=== PATIENT | male | born 1950 | race Caucasian/White ===

== ENCOUNTER 2017-08-31 14:47 | Inpatient (IN) | payer MEDICARE ==
--- OUTSIDE RECORDS SUMMARY | 2017-08-31 15:29 | XMS REPORT ---
:1950 External Reference #:[id number] Author Organization [facility] Address [address] [address] Phone [phone] Care Team Providers Name Role Phone Facundo Deleon MD Care Team Information Performance Tester Unavailable Federica Velasco MD Primary Care Physician Unavailable Payers Type Date Identification Numbers Payment Provider Subscriber Health Maintenance Policy Number: Medicare Blue Ppo Giselle Bass [facility] (O) [id number] PayID: [id number] [address] [address] [place] [address] Medigap Part B Expires: 03/01/2017 Policy Number: [id number] Medicare Giselle Bass PayID: [id number] [address] [place] [address] Medigap Part B Effective: 03/08/2013 Policy Number: BS Facets Giselle Bass [id number] Expires: 03/07/2017 PayID: [id number] [address] [address] [place] [address] Medigap Part B Effective: 07/06/2009 Policy Number: BS Facets Giselle Bass [id number] Expires: 03/07/2013 PayID: [id number] [address] [address] [place] [address] Workers Compensation Effective: Policy Number: [employer] Giselle Bass 06/21/2014 [id number] Onset: 06/21/2014 PayID: [id number] [address] [place] [address] Problems Date Description Provider Status Onset: 11/25/2012 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 Onset: 11/30/2012 Tricuspid valve disorder, Odell Avery Active non-rheumatic M.DAris Onset: 01/05/2013 Osteomyelitis Elijah Grace M.D. Active Onset: 01/05/2013 Pure hypercholesterolemia Elijah Grace M.D. Active Onset: 03/20/2013 Shoulder joint pain Karthik Rivera M.D. Active Family History Date Family Member(s) Problem(s) Comments General Heart Disease : (age 60 Years) Father due to [place] Mother due to CHF () First Daughter Alive And Well Social History Type Date Description Comments Occupation [employer] Use Denies alcohol use Smoking Patient has never smoked Recreational Drug Use Denies Drug Use Daily Caffeine Consumes on average 2 cups of regular coffee per day Exercise Type/Frequency Walks 2 times a week 2-3 miles General Hx Text Lives with significant other. Works in construction. Allergies, Adverse Reactions, Alerts Date Description Reaction Status Severity Comments 10/06/2006 NKDA active Medications Medication Date Status Form Strength Qnty SIG Indications Ordering Provider Metoprolol 12/22/ Active Tablets ER 25mg 90tabs 1 by I34.0 Chelsea Succinate ER 2016 24HR mouth Kathleen, every day M.DAris Paroxetine HCL 11/27/ Active Tablets 20mg 1 by [email or web address] kevyn Stallworth MD every day Alprazolam 07/08/ Active Tablets 0.25mg 6tabs 1 tablet F41.9 Elijah Almanza by kevyn Grace, up to M.DAris twice a day as needed for anxiety attacks Aleve / Active Capsules 220mg 1 by Unknown 0000 mouth twice a day as needed Diazepam / Active Tablets 5mg 1/2 to 1 Unknown 0000 tablet orally twice a day prn anxiety Vitamin B12 / Active Tablets ER 1000mcg 1 by Krista, mouth MD Federica every day Juan Jose Aspirin Ec / Active Tablets DR 81mg 1 tablet Adrienne, Low Dose 0000 po daily MD Facundo Vitamin D3 / Active Capsules 2000Unit 1 by Velasco, mouth MD Federica every day Hydrocodone-Acet 01/24/ Hx Tablets 5-325mg take 1-2 jordan Deleon 2017 - tablet po Facundo, 06/28/ every 4 MD 2018 hours prn for pain Hydrocodone-Acet 06/25/ Hx Tablets 5-325mg 20tabs 1-2 by 724.2 Elijah ortega 2015 - mouth Lesly, 09/03/ every 6 M.D. 2015 hours as needed pain. No Active 02/06/ Hx Unknown Medications 2012 - 2012 Augmentin 02/06/ Hx Tablets 500-125mg 28tabs 1 po bid 730.28 Severino 2012 - D. 06/25/ Kelsey 2014 M.DAris Augmentin 01/30/ Hx Tablets 500-125mg 28tabs 1 po bid Severino 2012 - DAris 02/06/ Kelsey 2012 M.DAris Zosyn 12/20/ Hx Solution 4-0.5GM/10 QS 4.5GM IV Severino 2012 - 0ML q8hrs D. 01/05/ Kelsey 2012 M.DAris No Active 11/25/ Hx Unknown Medications 2012 - 2012 Lisinopril 02/16/ Hx Tablets 5mg 90tabs one po qd Qutaybpb 2007 - S. 11/25/ Bennie 2012 Vimal Invanz / Hx Solution 1gm 14unit q24hrs Unknown 0000 - Rec s for 14 02/06/ 2012 Heparin Lock / Hx Solution 1Unit/ML Unknown Flush - 2012 Prednisone 00/ Hx Tablets 20mg 2 by Unknown 0000 - mouth 07/24/ every day 2014 Ibuprofen / Hx Tablets 200mg as needed Unknown 0000 - 2016 Ergocalciferol / Hx 50,000 Unknown 0000 - units 02/04/ orally 2016 once a week Warfarin Sodium 00/ Hx Tablets 2mg Take 1 Unknown 0000 - /2 06/27/ tablet po 2017 fri, and 1 tablet mon,, wed,th, sat,sun PM ( last Inr 03/12/[address] Federica Velasco) (stop 04/21/17 Probiotic 0000/ Hx 1 tablet Unknown 0000 - po 07/07/ daily(las 2017 t taking before 03/01/17) Vital Signs Date Vital Result Comment 08/10/2017 Height 71.25 inches 5'11.25" Weight 173.00 lb Heart Rate 84 /min BP Systolic 133 mmHg Lue home BP cuff BP Diastolic 93 mmHg Lue home BP cuff BP Systolic Sitting 130 mmHg Lue reg cuff BP Diastolic Sitting 94 mmHg Lue reg cuff BP Systolic Standing 110 mmHg Lue BP Diastolic Standing 82 mmHg Lue Respiratory Rate 16 /min BMI (Body Mass Index) 24.0 kg/m2 Ejection Fraction 50-55% 03/16/17 07/08/2017 Height 71.25 inches 5'11.25" Weight 175.00 lb no shoes Heart Rate 98 /min BP Systolic Sitting 116 mmHg Lue reg cuff BP Diastolic Sitting 74 mmHg Lue reg cuff BP Systolic Standing 96 mmHg Lue reg cuff BP Diastolic Standing 68 mmHg Lue reg cuff Respiratory Rate 16 /min BMI (Body Mass Index) 24.2 kg/m2 06/28/2017 Height 71.25 inches 5'11.25" Weight 179.00 lb without sh Heart Rate 76 /min BP Systolic Sitting 134 mmHg Rue reg cuff BP Diastolic Sitting 80 mmHg Rue reg cuff BP Systolic Standing 122 mmHg Rue reg cuff BP Diastolic Standing 90 mmHg Rue reg cuff Respiratory Rate 16 /min BMI (Body Mass Index) 24.8 kg/m2 03/22/2017 Height 71.25 inches 5'11.25" Weight 173.00 lb No shoes Heart Rate 72 /min BP Systolic Sitting 142 mmHg Rue reg cuff BP Diastolic Sitting 88 mmHg Rue reg cuff BP Systolic Standing 146 mmHg Rue reg cuff BP Diastolic Standing 90 mmHg Rue reg cuff Respiratory Rate 16 /min BMI (Body Mass Index) 24.0 kg/m2 Ejection Fraction 50-55% 03/16/2017-echo 02/05/2017 Height 71.25 inches 5'11.25" Weight 162.00 lb without shoes Heart Rate 72 /min BP Systolic Sitting 138 mmHg Lue reg cuff BP Diastolic Sitting 86 mmHg Lue reg cuff BP Systolic Standing 132 mmHg Lue BP Diastolic Standing 88 mmHg Lue Respiratory Rate 16 /min BMI (Body Mass Index) 22.4 kg/m2 Ejection Fraction 60-65% 09/30/16 01/05/2017 Height 71.25 inches 5'11.25" Weight 168.00 lb with shoes Heart Rate 68 /min BP Systolic Sitting 140 mmHg Lue reg cuff BP Diastolic Sitting 74 mmHg Lue reg cuff BP Systolic Standing 142 mmHg Lue reg cuff BP Diastolic Standing 78 mmHg Lue reg cuff Respiratory Rate 16 /min BMI (Body Mass Index) 23.3 kg/m2 12/22/2016 Height 71.25 inches 5'11.25" Weight 161.00 lb no shoes Heart Rate 74 /min BP Systolic 144 mmHg Rue reg cuff BP Diastolic 84 mmHg Rue reg cuff BP Systolic Sitting 140 mmHg Lue reg cuff BP Diastolic Sitting 80 mmHg Lue reg cuff BP Systolic Standing 136 mmHg Lue reg cuff BP Diastolic Standing 82 mmHg Lue reg cuff Respiratory Rate 16 /min BMI (Body Mass Index) 22.3 kg/m2 Ejection Fraction 60-65% 10/01/2016-echo 07/08/2016 Weight 156.00 lb Heart Rate 88 /min BP Systolic Sitting 154 mmHg BP Diastolic Sitting 86 mmHg Respiratory Rate 15 /min Body Temperature 98.0 F O2 % BldC Oximetry 98 % 06/30/2016 Height 72 inches 6'0" Weight 163.00 lb Heart Rate 80 /min BP Systolic 160 mmHg BP Diastolic 80 mmHg Body Temperature 97.7 F O2 % BldC Oximetry 98 % BMI (Body Mass Index) 22.1 kg/m2 04/08/2016 Height 72 inches 6'0" Weight 160.00 lb Heart Rate 76 /min BP Systolic Recheck 130 mmHg BP Diastolic Recheck 84 mmHg Respiratory Rate 16 /min Body Temperature 97.9 F BMI (Body Mass Index) 21.7 kg/m2 02/25/2015 Weight 166.00 lb Heart Rate 90 /min BP Systolic Sitting 172 mmHg BP Diastolic Sitting 88 mmHg Body Temperature 96.6 F 09/04/2014 Height 71.5 inches 5'11.50" Weight 155.00 lb Heart Rate 68 /min BP Systolic Sitting 138 mmHg BP Diastolic Sitting 78 mmHg Respiratory Rate 16 /min BMI (Body Mass Index) 21.3 kg/m2 07/24/2014 Height 71.5 inches 5'11.50" Weight 149.00 lb Heart Rate 84 /min BP Systolic Sitting 138 mmHg BP Diastolic Sitting 82 mmHg O2 % BldC Oximetry 97 % BMI (Body Mass Index) 20.5 kg/m2 06/29/2014 Height 71.5 inches 5'11.50" Weight 162.00 lb Heart Rate 84 /min BP Systolic Sitting 142 mmHg BP Diastolic Sitting 80 mmHg O2 % BldC Oximetry 98 % BMI (Body Mass Index) 22.3 kg/m2 06/25/2014 Height 71.5 inches 5'11.50" Weight 165.50 lb Heart Rate 90 /min BP Systolic Sitting 178 mmHg BP Diastolic Sitting 76 mmHg Pain Level 7 O2 % BldC Oximetry 98 % BMI (Body Mass Index) 22.8 kg/m2 02/06/2013 Weight 163.00 lb Heart Rate 80 /min BP Systolic Sitting 115 mmHg BP Diastolic Sitting 68 mmHg Body Temperature 97.0 F 01/16/2013 Height 71.5 inches 5'11.50" Weight 150.00 lb Heart Rate 76 /min BP Systolic 126 mmHg BP Diastolic 70 mmHg Body Temperature 97.5 F BMI (Body Mass Index) 20.6 kg/m2 01/05/2013 Height 71.5 inches 5'11.50" Weight 157.00 lb Heart Rate 78 /min BP Systolic Sitting 136 mmHg BP Diastolic Sitting 80 mmHg BMI (Body Mass Index) 21.6 kg/m2 12/19/2012 Height 72 inches 6'0" Weight 144.00 lb Heart Rate 68 /min BP Systolic 114 mmHg BP Diastolic 70 mmHg Body Temperature 95.4 F BMI (Body Mass Index) 19.5 kg/m2 12/09/2012 Height 72 inches 6'0" Weight 142.00 lb Heart Rate 72 /min BP Systolic 118 mmHg BP Diastolic 62 mmHg Body Temperature 96.7 F BMI (Body Mass Index) 19.3 kg/m2 11/30/2012 Height 72 inches 6'0" Weight 146.00 lb Heart Rate 120 /min BP Systolic Sitting 88 mmHg BP Diastolic Sitting 66 mmHg BP Systolic Standing 90 mmHg BP Diastolic Standing 70 mmHg BP Systolic Lying Down 112 mmHg BP Diastolic Lying Down 60 mmHg Respiratory Rate 16 /min BMI (Body Mass Index) 19.8 kg/m2 11/25/2012 Height 72 inches 6'0" Weight 145.00 lb Heart Rate 80 /min BP Systolic 120 mmHg BP Diastolic 64 mmHg Body Temperature 96.7 F BMI (Body Mass Index) 19.7 kg/m2 05/18/2007 Height 73 inches 6'1" Weight 174.00 lb Heart Rate 72 /min BP Systolic Sitting 110 mmHg L BP Diastolic Sitting 70 mmHg L BMI (Body Mass Index) 23.0 kg/m2 02/16/2007 Height 73 inches 6'1" Weight 171.00 lb Heart Rate 64 /min BP Systolic Sitting 134 mmHg L BP Diastolic Sitting 70 mmHg L BMI (Body Mass Index) 22.6 kg/m2 10/06/2006 Height 73 inches 6'1" Weight 165.00 lb Heart Rate 65 /min BP Systolic Sitting 110 mmHg L BP Diastolic Sitting 62 mmHg L BMI (Body Mass Index) 21.8 kg/m2 Results Test Date Test Result H/L Range Note CBC Auto Diff 12/30/2016 White Blood Count 7.9 10^3/uL 3.5-10.8 Red Blood Count 4.98 10^6/uL 4.0-5.4 Hemoglobin 14.1 g/dL 14.0-18.0 Hematocrit 42 % 42-52 Mean Corpuscular Volume 84 fL 80-94 Mean Corpuscular Hemoglobin 28 pg 27-31 Mean Corpuscular HGB Conc 34 g/dL 31-36 Red Cell Distribution Width 14 % 10.5-15 Platelet Count 241 10^3/uL 150-450 Mean Platelet Volume 9 um3 7.4-10.4 Abs Neutrophils 4.5 10^3/uL 1.5-7.7 Abs Lymphocytes 2.4 10^3/uL 1.0-4.8 Abs Monocytes 0.5 10^3/uL 0-0.8 Abs Eosinophils 0.4 10^3/uL 0-0.6 Abs Basophils 0.1 10^3/uL 0-0.2 Abs Nucleated RBC 0.01 10^3/uL Granulocyte % 56.4 % 38-83 Lymphocyte % 30.6 % 25-47 Monocyte % 6.8 % 1-9 Eosinophil % 5.5 % 0-6 Basophil % 0.7 % 0-2 Nucleated Red Blood Cells % 0.1 Inr/Protime 12/30/2016 Inr 0.93 0.89-1.11 Comp Metabolic Panel 12/30/2016 Sodium 138 mmol/L 133-145 Potassium 4.0 mmol/L 3.5-5.0 Chloride 104 mmol/L 101-111 Co2 Carbon Dioxide 30 mmol/L 22-32 Anion Gap 4 mmol/L 2-11 Glucose 83 mg/dL 70-100 Blood Urea Nitrogen 21 mg/dL 6-24 Creatinine 0.96 mg/dL 0.67-1.17 BUN/Creatinine Ratio 21.9 High 8-20 Calcium 9.5 mg/dL 8.6-10.3 Total Protein 7.3 g/dL 6.4-8.9 Albumin 4.4 g/dL 3.2-5.2 Globulin 2.9 g/dL 2-4 Albumin/Globulin Ratio 1.5 1-3 Total Bilirubin 0.80 mg/dL 0.2-1.0 Alkaline Phosphatase 52 U/L 34-104 Alt 24 U/L 7-52 Ast 23 U/L 13-39 Egfr Non- 78.6 >60 Egfr 101.1 >60 1 Laboratory test finding 09/04/2014 Vitamin B12 230 pg/mL 180-914 2 CBC Auto Diff 07/23/2014 White Blood Count 6.8 10^3/uL 4.8-10.8 Red Blood Count 5.05 10^6/uL 4.0-5.4 Hemoglobin 13.8 g/dL Low 14.0-18.0 Hematocrit 43 % 42-52 Mean Corpuscular Volume 84 fL 80-94 Mean Corpuscular Hemoglobin 27 pg 27-31 Mean Corpuscular HGB Conc 32 g/dL 31-36 Red Cell Distribution Width 14 % 10.5-15 Platelet Count 234 10^3/uL 150-450 Mean Platelet Volume 9 um3 7.4-10.4 Abs Neutrophils 3.3 10^3/uL 1.5-7.7 Abs Lymphocytes 2.5 10^3/uL 1.0-4.8 Abs Monocytes 0.6 10^3/uL 0-0.8 Abs Eosinophils 0.3 10^3/uL 0-0.6 Abs Basophils 0 10^3/uL 0-0.2 Abs Nucleated RBC 0.01 10^3/uL Granulocyte % 48.8 % 38-83 Lymphocyte % 37.5 % 25-47 Monocyte % 8.6 % 1-9 Eosinophil % 4.4 % 0-6 Basophil % 0.7 % 0-2 Nucleated Red Blood Cells % 0.1 Laboratory test finding 07/23/2014 Lactic Acid 0.6 mmol/L 0.5-2.2 Comp Metabolic Panel 07/23/2014 Sodium 137 mmol/L 133-145 Potassium 3.7 mmol/L 3.5-5.0 Chloride 104 mmol/L 101-111 Co2 Carbon Dioxide 27 mmol/L 22-32 Anion Gap 6 mmol/L 2-11 Glucose 92 mg/dL 70-100 Blood Urea Nitrogen 18 mg/dL 6-24 Creatinine 0.87 mg/dL 0.67-1.17 BUN/Creatinine Ratio 20.7 High 8-20 Calcium 9.2 mg/dL 8.6-10.3 Total Protein 6.8 g/dL 6.4-8.9 Albumin 4.2 g/dL 3.2-5.2 Globulin 2.6 g/dL 2-4 Albumin/Globulin Ratio 1.6 1-3 Total Bilirubin 1.10 mg/dL High 0.2-1.0 Alkaline Phosphatase 50 U/L 34-104 Alt 19 U/L 7-52 Ast 23 U/L 13-39 Egfr Non- 88.9 >60 Egfr 114.4 >60 3 Laboratory test finding 07/23/2014 Acetaminophen < 15 g/mL 4 Alcohol < 10 mg/dL <10 Salicylate < 2.50 mg/dL <30 TSH (Thyroid Stimulating Horm) 1.87 ?IU/mL 0.34-5.60 Urinalysis Profile 07/23/2014 Urine Color Yellow Urine Appearance Clear Urine Specific [place] 1.024 1.010-1.030 Urine pH 6.0 5-9 Urine Urobilinogen Positive Negative Urine Ketones Negative Negative Urine Protein Negative Negative Urine Leukocytes Negative Negative Urine Blood Negative Negative Urine Nitrite Negative Negative Urine Bilirubin Negative Negative Urine Glucose Negative Negative Urine Drug SCR ED & 07/23/2014 Amphetamine Ur Screen None Detected None Detect Pain Clinic Barbiturates Urine Screen None Detected None Detect Benzodiazepine Urine Screen None Detected None Detect Urine Cannabinoids Screen None Detected None Detect Urine Cocaine Screen None Detected None Detect Urine Opiates Screen None Detected None Detect Urine Phencyclidine Screen None Detected None Detect 5 Lipid Profile (Trig/Chol/HDL) 02/08/2013 Triglycerides 48 mg/dL 40-200 Cholesterol 199 mg/dL Less than 200 HDL Cholesterol 46 mg/dL 40-60 6 Cholesterol/HDL Ratio 4.3 Average 1-4.44 LDL Cholesterol 143.4 High Less Than 100 7 Comp Metabolic Panel 01/26/2013 Sodium 139 mmol/L 133-145 Potassium 4.1 mmol/L 3.5-5.0 Chloride 108 mmol/L 101-111 Co2 Carbon Dioxide 26.0 mmol/L 22-32 Anion Gap 5.0 mmol/L 2-11 Glucose 110 mg/dL High 70-100 Blood Urea Nitrogen 22 mg/dL 6-24 Creatinine 0.90 mg/dL 0.50-1.40 BUN/Creatinine Ratio 24.4 High 8-20 Calcium 9.0 mg/dL 8.1-9.9 Total Protein 5.7 g/dL Low 6.2-8.1 Albumin 3.7 g/dL 3.2-5.2 Globulin 2.0 g/dL 2-4 Albumin/Globulin Ratio 1.9 1-3 Total Bilirubin 0.5 mg/dL 0.4-1.5 Alkaline Phosphatase 71 U/L 30-110 Alt 47 U/L 14-54 Ast 38 U/L 12-42 Egfr Non- 85.8 >60 Egfr 110.3 >60 8 Laboratory test 01/26/2013 C Reactive Protein 0.8 mg/dL High Less than 0.5 finding CBC Auto Diff 01/26/2013 White Blood Count 6.7 10^3/uL 4.8-10.8 Red Blood Count 4.36 10^6/uL 4.0-5.4 Hemoglobin 12.1 g/dL Low 14.0-18.0 Hematocrit 37 % Low 42-52 Mean Corpuscular Volume 84 fL 80-94 Mean Corpuscular Hemoglobin 28 pg 27-31 Mean Corpuscular HGB Conc 33 g/dL 31-36 Red Cell Distribution Width 14 % 10.5-15 Platelet Count 248 10^3/uL 150-450 Mean Platelet Volume 9 um3 7.4-10.4 Abs Neutrophils 3.5 10^3/uL 1.5-7.7 Abs Lymphocytes 2.2 10^3/uL 1.0-4.8 Abs Monocytes 0.5 10^3/uL 0-0.8 Abs Eosinophils 0.5 10^3/uL 0-0.6 Abs Basophils 0.1 10^3/uL 0-0.2 Abs Nucleated RBC 0 10^3/uL Granulocyte % 51.5 % 38-83 Lymphocyte % 32.3 % 25-47 Monocyte % 8.0 % 1-9 Eosinophil % 7.2 % High 0-6 Basophil % 1.0 % 0-2 Nucleated Red Blood Cells % 0 Laboratory test finding 01/26/2013 Erythrocyte Sed Rate 10 mm/Hr 0-20 CBC Auto Diff 01/19/2013 White Blood Count 6.9 10^3/uL 4.8-10.8 Red Blood Count 4.51 10^6/uL 4.0-5.4 Hemoglobin 12.2 g/dL Low 14.0-18.0 Hematocrit 38 % Low 42-52 Mean Corpuscular Volume 85 fL 80-94 Mean Corpuscular Hemoglobin 27 pg 27-31 Mean Corpuscular HGB Conc 32 g/dL 31-36 Red Cell Distribution Width 14 % 10.5-15 Platelet Count 240 10^3/uL 150-450 Mean Platelet Volume 9 um3 7.4-10.4 Abs Neutrophils 3.8 10^3/uL 1.5-7.7 Abs Lymphocytes 2.2 10^3/uL 1.0-4.8 Abs Monocytes 0.6 10^3/uL 0-0.8 Abs Eosinophils 0.4 10^3/uL 0-0.6 Abs Basophils 0.1 10^3/uL 0-0.2 Abs Nucleated RBC 0 10^3/uL Granulocyte % 54.4 % 38-83 Lymphocyte % 31.1 % 25-47 Monocyte % 8.2 % 1-9 Eosinophil % 5.3 % 0-6 Basophil % 1.0 % 0-2 Nucleated Red Blood Cells % 0 Laboratory test finding 01/19/2013 Erythrocyte Sed Rate 10 mm/Hr 0-20 Laboratory test finding 01/12/2013 C Reactive Protein 0.5 mg/dL Less than 0.5 CBC Auto Diff 01/12/2013 White Blood Count 6.7 10^3/uL 4.8-10.8 Red Blood Count 4.40 10^6/uL 4.0-5.4 Hemoglobin 12.6 g/dL Low 14.0-18.0 Hematocrit 38 % Low 42-52 Mean Corpuscular Volume 85 fL 80-94 Mean Corpuscular Hemoglobin 29 pg 27-31 Mean Corpuscular HGB Conc 33 g/dL 31-36 Red Cell Distribution Width 14 % 10.5-15 Platelet Count 257 10^3/uL 150-450 Mean Platelet Volume 9 um3 7.4-10.4 Abs Neutrophils 3.3 10^3/uL 1.5-7.7 Abs Lymphocytes 2.4 10^3/uL 1.0-4.8 Abs Monocytes 0.5 10^3/uL 0-0.8 Abs Eosinophils 0.4 10^3/uL 0-0.6 Abs Basophils 0 10^3/uL 0-0.2 Abs Nucleated RBC 0 10^3/uL Granulocyte % 48.8 % 38-83 Lymphocyte % 36.0 % 25-47 Monocyte % 8.0 % 1-9 Eosinophil % 6.5 % High 0-6 Basophil % 0.7 % 0-2 Nucleated Red Blood Cells % 0 Laboratory test finding 01/12/2013 Erythrocyte Sed Rate 10 mm/Hr 0-20 Comp Metabolic Panel 01/12/2013 Sodium 140 mmol/L 133-145 Potassium 4.4 mmol/L 3.5-5.0 Chloride 106 mmol/L 101-111 Co2 Carbon Dioxide 28.0 mmol/L 22-32 Anion Gap 6.0 mmol/L 2-11 Glucose 86 mg/dL 70-100 Blood Urea Nitrogen 17 mg/dL 6-24 Creatinine 0.90 mg/dL 0.50-1.40 BUN/Creatinine Ratio 18.9 8-20 Calcium 9.1 mg/dL 8.1-9.9 Total Protein 6.7 g/dL 6.2-8.1 Albumin 3.9 g/dL 3.2-5.2 Globulin 2.8 g/dL 2-4 Albumin/Globulin Ratio 1.4 1-3 Total Bilirubin 0.5 mg/dL 0.4-1.5 Alkaline Phosphatase 61 U/L 30-110 Alt 39 U/L 14-54 Ast 32 U/L 12-42 Egfr Non- 85.8 >60 Egfr 110.3 >60 9 Comp Metabolic Panel 01/05/2013 Sodium 140 mmol/L 133-145 Potassium 3.9 mmol/L 3.5-5.0 Chloride 108 mmol/L 101-111 Co2 Carbon Dioxide 28.0 mmol/L 22-32 Anion Gap 4.0 mmol/L 2-11 Glucose 82 mg/dL 70-100 Blood Urea Nitrogen 14 mg/dL 6-24 Creatinine 0.80 mg/dL 0.50-1.40 BUN/Creatinine Ratio 17.5 8-20 Calcium 8.9 mg/dL 8.1-9.9 Total Protein 5.8 g/dL Low 6.2-8.1 Albumin 3.6 g/dL 3.2-5.2 Globulin 2.2 g/dL 2-4 Albumin/Globulin Ratio 1.6 1-3 Total Bilirubin 0.8 mg/dL 0.4-1.5 Alkaline Phosphatase 42 U/L 30-110 Alt 30 U/L 14-54 Ast 28 U/L 12-42 Egfr Non- 98.3 >60 Egfr 126.4 >60 10 Laboratory test finding 01/05/2013 C Reactive Protein < 0.5 mg/dL Less than 0.5 CBC Auto Diff 01/05/2013 White Blood Count 5.9 10^3/uL 4.8-10.8 Red Blood Count 4.16 10^6/uL 4.0-5.4 Hemoglobin 12.1 g/dL Low 14.0-18.0 Hematocrit 36 % Low 42-52 Mean Corpuscular Volume 86 fL 80-94 Mean Corpuscular Hemoglobin 29 pg 27-31 Mean Corpuscular HGB Conc 34 g/dL 31-36 Red Cell Distribution Width 14 % 10.5-15 Platelet Count 209 10^3/uL 150-450 Mean Platelet Volume 9 um3 7.4-10.4 Abs Neutrophils 3.2 10^3/uL 1.5-7.7 Abs Lymphocytes 2.1 10^3/uL 1.0-4.8 Abs Monocytes 0.4 10^3/uL 0-0.8 Abs Eosinophils 0.1 10^3/uL 0-0.6 Abs Basophils 0.1 10^3/uL 0-0.2 Abs Nucleated RBC 0.01 10^3/uL Granulocyte % 54.6 % 38-83 Lymphocyte % 34.8 % 25-47 Monocyte % 7.2 % 1-9 Eosinophil % 2.5 % 0-6 Basophil % 0.9 % 0-2 Nucleated Red Blood Cells % 0.1 Laboratory test finding 01/05/2013 Erythrocyte Sed Rate 9 mm/Hr 0-20 Laboratory test finding 12/30/2012 C. difficile Amplified (SEE NOTE) 11 Dna CBC Auto Diff 12/29/2012 White Blood Count 5.8 10^3/uL 4.8-10.8 Red Blood Count 4.56 10^6/uL 4.0-5.4 Hemoglobin 12.4 g/dL Low 14.0-18.0 Hematocrit 39 % Low 42-52 Mean Corpuscular Volume 86 fL 80-94 Mean Corpuscular Hemoglobin 27 pg 27-31 Mean Corpuscular HGB Conc 32 g/dL 31-36 Red Cell Distribution Width 14 % 10.5-15 Platelet Count 201 10^3/uL 150-450 Mean Platelet Volume 9 um3 7.4-10.4 Abs Neutrophils 3.3 10^3/uL 1.5-7.7 Abs Lymphocytes 1.7 10^3/uL 1.0-4.8 Abs Monocytes 0.4 10^3/uL 0-0.8 Abs Eosinophils 0.3 10^3/uL 0-0.6 Abs Basophils 0 10^3/uL 0-0.2 Abs Nucleated RBC 0 10^3/uL Granulocyte % 57.2 % 38-83 Lymphocyte % 29.9 % 25-47 Monocyte % 7.6 % 1-9 Eosinophil % 4.5 % 0-6 Basophil % 0.8 % 0-2 Nucleated Red Blood Cells % 0 Comp Metabolic Panel 12/29/2012 Sodium 140 mmol/L 133-145 Potassium 3.8 mmol/L 3.5-5.0 Chloride 110 mmol/L 101-111 Co2 Carbon Dioxide 26.0 mmol/L 22-32 Anion Gap 4.0 mmol/L 2-11 Glucose 91 mg/dL 70-100 Blood Urea Nitrogen 17 mg/dL 6-24 Creatinine 0.90 mg/dL 0.50-1.40 BUN/Creatinine Ratio 18.9 8-20 Calcium 8.9 mg/dL 8.1-9.9 Total Protein 6.6 g/dL 6.2-8.1 Albumin 3.9 g/dL 3.2-5.2 Globulin 2.7 g/dL 2-4 Albumin/Globulin Ratio 1.4 1-3 Total Bilirubin 0.5 mg/dL 0.4-1.5 Alkaline Phosphatase 40 U/L 30-110 Alt 26 U/L 14-54 Ast 25 U/L 12-42 Egfr Non- 85.8 >60 Egfr 110.3 >60 12 Laboratory test finding 12/29/2012 Erythrocyte Sed Rate 6 mm/Hr 0-20 C Reactive Protein < 0.5 mg/dL Less than 0.5 CBC Auto Diff 12/03/2012 White Blood Count 6.4 10^3/uL 4.8-10.8 Red Blood Count 4.76 10^6/uL 4.0-5.4 Hemoglobin 12.9 g/dL Low 14.0-18.0 Hematocrit 40 % Low 42-52 Mean Corpuscular Volume 85 fL 80-94 Mean Corpuscular Hemoglobin 27 pg 27-31 Mean Corpuscular HGB Conc 32 g/dL 31-36 Red Cell Distribution Width 13 % 10.5-15 Platelet Count 244 10^3/uL 150-450 Mean Platelet Volume 9 um3 7.4-10.4 Abs Neutrophils 3.6 10^3/uL 1.5-7.7 Abs Lymphocytes 2.0 10^3/uL 1.0-4.8 Abs Monocytes 0.6 10^3/uL 0-0.8 Abs Eosinophils 0.1 10^3/uL 0-0.6 Abs Basophils 0.1 10^3/uL 0-0.2 Abs Nucleated RBC 0.01 10^3/uL Granulocyte % 56.9 % 38-83 Lymphocyte % 31.9 % 25-47 Monocyte % 9.2 % High 1-9 Eosinophil % 1.0 % 0-6 Basophil % 1.0 % 0-2 Nucleated Red Blood Cells % 0.1 Laboratory test finding 12/03/2012 Erythrocyte Sed Rate 7 mm/Hr 0-20 C Reactive Protein 0.5 mg/dL Less than 0.5 Comp Metabolic Panel 12/03/2012 Sodium 137 mmol/L 133-145 Potassium 3.9 mmol/L 3.5-5.0 Chloride 107 mmol/L 101-111 Co2 Carbon Dioxide 25.0 mmol/L 22-32 Anion Gap 5.0 mmol/L 2-11 Glucose 109 mg/dL High 70-100 Blood Urea Nitrogen 17 mg/dL 6-24 Creatinine 0.90 mg/dL 0.50-1.40 BUN/Creatinine Ratio 18.9 8-20 Calcium 8.9 mg/dL 8.1-9.9 Total Protein 6.2 g/dL 6.2-8.1 Albumin 3.6 g/dL 3.2-5.2 Globulin 2.6 g/dL 2-4 Albumin/Globulin Ratio 1.4 1-3 Total Bilirubin 0.7 mg/dL 0.4-1.5 Alkaline Phosphatase 47 U/L 30-110 Alt 24 U/L 14-54 Ast 21 U/L 12-42 Egfr Non- 85.8 >60 Egfr 110.3 >60 13 1 Because ethnic data is not always readily available, this report includes an eGFR for both -Americans and non- Americans. The National Kidney Disease Education Program (NKDEP) does not endorse the use of the MDRD equation for patients that are not between the ages of 18 and 70, are , have extremes of body size, muscle mass, or nutritional status, or are non- or non-. According to the [employer], irrespective of diagnosis, the stage of the disease is based on the level of kidney function: Stage Description GFR(mL/min/1.73 m(2)) 1 Kidney damage with normal or decreased GFR 90 2 Kidney damage with mild decrease in GFR 60-89 3 Moderate decrease in GFR 30-59 4 Severe decrease in GFR 15-29 5 Kidney failure <15 (or dialysis) 2 Normal Range 180 to 914 Indeterminate Range 145 to 180 Deficient Range <145 3 Because ethnic data is not always readily available, this report includes an eGFR for both -Americans and non- Americans. The National Kidney Disease Education Program (NKDEP) does not endorse the use of the MDRD equation for patients that are not between the ages of 18 and 70, are , have extremes of body size, muscle mass, or nutritional status, or are non- or non-. According to the [employer], irrespective of diagnosis, the stage of the disease is based on the level of kidney function: Stage Description GFR(mL/min/1.73 m(2)) 1 Kidney damage with normal or decreased GFR 90 2 Kidney damage with mild decrease in GFR 60-89 3 Moderate decrease in GFR 30-59 4 Severe decrease in GFR 15-29 5 Kidney failure <15 (or dialysis) 4 Therapeutic concentration: <50 ug/mL Toxic concentration: >120 ug/mL 5 The urine specimen was tested at the listed cutoffs: Drug class test level (ng/mL) Amphetamines 500 Barbituates 200 Benzodiazepine metabolites 200 Cocaine metabolites 150 Cannabinoids 50 Opiates 300 Pcp 25 This is a screening procedure. Positive results are not confirmed. Specimen was received without chain of custody. Results should be used for medical purposes only. 6 HDL Interpretation: Undesirable: High Risk: Less than 40 mg/dL Desirable: Low Risk: Greater than 60 mg/dL 7 LDL Interpretation: Low Risk Optimal Level: LDL Less than 100 mg/dL Near or Above Optimal: LDL 100-129 mg/dL Borderline High Risk: LDL 130-159 mg/dL High Risk: LDL 160-189 mg/dL Very High Risk: LDL Greater than 189 mg/dL 8 Because ethnic data is not always readily available, this report includes an eGFR for both -Americans and non- Americans. The National Kidney Disease Education Program (NKDEP) does not endorse the use of the MDRD equation for patients that are not between the ages of 18 and 70, are , have extremes of body size, muscle mass, or nutritional status, or are non- or non-. According to the National Kidney Foundation, irrespective of diagnosis, the stage of the disease is based on the level of kidney function: Stage Description GFR(mL/min/1.73 m(2)) 1 Kidney damage with normal or decreased GFR 90 2 Kidney damage with mild decrease in GFR 60-89 3 Moderate decrease in GFR 30-59 4 Severe decrease in GFR 15-29 5 Kidney failure <15 (or dialysis) 9 Because ethnic data is not always readily available, this report includes an eGFR for both -Americans and non- Americans. The National Kidney Disease Education Program (NKDEP) does not endorse the use of the MDRD equation for patients that are not between the ages of 18 and 70, are , have extremes of body size, muscle mass, or nutritional status, or are non- or non-. According to the National Kidney Foundation, irrespective of diagnosis, the stage of the disease is based on the level of kidney function: Stage Description GFR(mL/min/1.73 m(2)) 1 Kidney damage with normal or decreased GFR 90 2 Kidney damage with mild decrease in GFR 60-89 3 Moderate decrease in GFR 30-59 4 Severe decrease in GFR 15-29 5 Kidney failure <15 (or dialysis) 10 Because ethnic data is not always readily available, this report includes an eGFR for both -Americans and non- Americans. The National Kidney Disease Education Program (NKDEP) does not endorse the use of the MDRD equation for patients that are not between the ages of 18 and 70, are , have extremes of body size, muscle mass, or nutritional status, or are non- or non-. According to the National Kidney Foundation, irrespective of diagnosis, the stage of the disease is based on the level of kidney function: Stage Description GFR(mL/min/1.73 m(2)) 1 Kidney damage with normal or decreased GFR 90 2 Kidney damage with mild decrease in GFR 60-89 3 Moderate decrease in GFR 30-59 4 Severe decrease in GFR 15-29 5 Kidney failure <15 (or dialysis) 11 RUN DATE: 12/30/12 [facility] LAB LIVE PAGE 1 RUN TIME: [address] [place], [place] [address] Specimen Inquiry Name: GISELLE BASS : [address]: Severino Mckay MD Acct: [id number] Unit: [id number] AGE: 62 Location: [facility] Re12/30/12 SEX: M Status: REG REF SPEC: [id number] PANKAJ: 12/30/[address] [facility] [address]: Severino Mckay MD REQ: [id number] RECD: 12/30/12 STATUS: COMP _ SOURCE: STOOL SPDESC: ORDERED: Ramos Zambrano DNA QUERIES: Medent Number [id number] Procedure Result Verified Site C. difficile Amplified DNA Final 12/30/12- 1429 ML Organism 1 Neg: No C. difficile detected Assay tests for toxigenic C. difficile with Pathogen Locus (PALOC) TEST LIMITATIONS: Assay does not distinguish between viable and nonviable organisms. Test results are to be used in conjunction with information available from the patient clinical evaluation and other diagnostic procedures. Two distinct groups have been identified that can harbor C. difficile asymptomatically at very high rates. Colonization at rates up to 50% and higher have been reported in infants and rates up to 32% in cystic fibrosis patients. END OF REPORT * ML=Testing performed at Main Lab DEPARTMENT OF PATHOLOGY, [address] [place] [address] Tutu Miller M.D. Director [facility] Permit #[id number] 12 Because ethnic data is not always readily available, this report includes an eGFR for both -Americans and non- Americans. The National Kidney Disease Education Program (NKDEP) does not endorse the use of the MDRD equation for patients that are not between the ages of 18 and 70, are , have extremes of body size, muscle mass, or nutritional status, or are non- or non-. According to the National Kidney Foundation, irrespective of diagnosis, the stage of the disease is based on the level of kidney function: Stage Description GFR(mL/min/1.73 m(2)) 1 Kidney damage with normal or decreased GFR 90 2 Kidney damage with mild decrease in GFR 60-89 3 Moderate decrease in GFR 30-59 4 Severe decrease in GFR 15-29 5 Kidney failure <15 (or dialysis) 13 Because ethnic data is not always readily available, this report includes an eGFR for both -Americans and non- Americans. The National Kidney Disease Education Program (NKDEP) does not endorse the use of the MDRD equation for patients that are not between the ages of 18 and 70, are , have extremes of body size, muscle mass, or nutritional status, or are non- or non-. According to the National Kidney Foundation, irrespective of diagnosis, the stage of the disease is based on the level of kidney function: Stage Description GFR(mL/min/1.73 m(2)) 1 Kidney damage with normal or decreased GFR 90 2 Kidney damage with mild decrease in GFR 60-89 3 Moderate decrease in GFR 30-59 4 Severe decrease in GFR 15-29 5 Kidney failure <15 (or dialysis) Procedures Date CPT Code Description Status 07/08/2017 39407 EKG Tracing & Interpretation Completed 03/22/2017 97987 EKG Tracing & Interpretation Completed 03/16/2017 66218 ECHO Transthoracic, Real-Time 2D With Doppler And Color Completed Flow 03/16/2017 49011 ECHO Transthoracic, Real-Time 2D With Doppler And Color Completed Flow 02/05/2017 30979 EKG Tracing & Interpretation Completed 12/30/2016 63003 Left Heart Cath. Incl S/I Coronaries, Angio S/I V Gram Completed If Done 12/24/2016 07681 Moderate Sedation Services; Same Phys Intl 15 Mins; PT Completed >=5 Years 12/24/2016 75573 Color Flow Doppler/Interp & Reprt Completed 12/24/2016 75893 Pulse Wave/Continuous-Interp.RPT Completed 12/24/2016 78145 Echocardiography, Transesophageal, Real Time W/Image 2D Completed W/W/O M-M 12/22/2016 42167 EKG Tracing & Interpretation Completed 12/21/2016 Colonoscopy Completed 12/21/2016 61941 Colonoscopy Flexible Remove Tumor/Polyp/Lesion Snare Completed Technique 12/21/2016 96342 Colonoscopy Flexible W/Biopsy Completed 09/30/2016 16530 ECHO Transthorasic Realtime 2D W Doppler & Color Flow Completed Hosp 12/08/2012 15221 Echocardiography, Transesophageal, Real Time W/Image 2D Completed W/W/O M-M 12/08/2012 01267 Color Flow Doppler/Interp & Reprt Completed 12/08/2012 80823 Pulse Wave/Continuous-Interp.RPT Completed 11/30/2012 63118 EKG Tracing & Interpretation Completed 11/25/2012 67657 ECHO Transthoracic, Real-Time 2D With Doppler And Color Completed Flow 08/03/2012 68293 Rad Shoulder Comp, Min. 2 Views Completed 05/09/2007 02119 Echocardiogram Completed 05/09/2007 22646 Echocardiogram Completed 05/09/2007 50764 Color Doppler Completed 05/09/2007 53402 Pulse Doppler & Continuous Wave Completed 05/09/2007 28456 Color Doppler Completed 11/16/2006 99571 Color Flow Doppler/Interp & Reprt Completed 11/16/2006 22341 Echocardiography, Transesophageal, Real Time W/Image 2D Completed W/W/O M-M 11/16/2006 53135 Echocardiography, Transesophageal, Real Time W/Image 2D Completed W/W/O M-M 11/16/2006 59677 Pulse Wave/Continuous-Interp.RPT Completed 11/16/2006 66187 Color Flow Doppler/Interp & Reprt Completed 10/07/2006 32263 ECHO/Stress Completed 10/07/2006 29985 Stress Test Completed 10/07/2006 71936 ECHO/Stress Completed 10/06/2006 55893 EKG Tracing & Interpretation Completed 10/06/2006 70243 EKG Tracing & Interpretation Completed 08/04/2006 51041 Echocardiogram Completed 08/04/2006 90815 Color Doppler Completed 08/04/2006 74702 Color Doppler Completed 08/04/2006 75588 Pulse Doppler & Continuous Wave Completed 08/04/2006 57404 Echocardiogram Completed Encounters Type Date Location Provider CPT E/M Dx Office Visit 06/28/2017 1:00p [facility] Nano Wang M.D. 08857 I34.1 Neuropsychology Service Director I34.0 R61 R07.89 Office Visit 03/22/2017 1:50p [facility] Nano Wang M.D. 60771 I34.1 Neuropsychology Service Director I34.0 I49.3 Office Visit 02/05/2017 10:45a [facility] Nano Wang M.D. 64216 I34.0 [facility] I34.1 Office Visit 01/05/2017 1:30p [facility] RICKI Caceres 21031GXW I34.0 I36.1 Office Visit 12/22/2016 2:00p [facility] [place] Wang M.D. 57725 I34.0 [facility] I36.1 Office Visit 07/08/2016 3:20p [facility] Internal Medicine Elijah Grace, 92050 F41.9 - Bakari Celis Office Visit 06/30/2016 1:40p [facility] Internal Medicine Elijah Grace, 68319 M54.5 - Bakair Celis Office Visit 04/08/2016 10:45a [facility] Phong Irby M.D. 01521 H93.13 AT [place] H61.23 Office Visit 02/25/2015 10:40a [facility] Internal Medicine Elijah Grace, 04434 S23.29xA - Pedro Celis Office Visit 09/04/2014 10:00a [facility] Matias Purcell, 71177 724.4 [facility] Vimal Office Visit 07/24/2014 9:40a [facility] Internal Medicine Elijah Grace, 98978 724.2 - Pedro Celis 300.00 781.2 Office Visit 06/29/2014 11:40a [facility] Internal Medicine Elijah Grace, 16045 724.2 - Pedro Celis Office Visit 06/25/2014 11:20a [facility] Internal Medicine Elijah Grace, 44622 724.2 - Pedro Celis Office Visit 02/06/2013 4:20p [facility] Emerald [place] 96163 730.28 Infectious Diseases Vimal Mckay Office Visit 01/16/2013 4:20p Yermo Charo [place] 59337 730.28 Infectious Diseases Vimal Mckay Office Visit 01/05/2013 1:20p [facility] Internal Medicine Elijah Grace, 86344 730.28 - Pedro Celis 424.0 272.0 Office Visit 12/19/2012 4:00p [facility] Severino McfarlandAris Kelsey, 96005 730.28 Infectious Diseases M.D. Office Visit 12/09/2012 10:10a [facility] Severino McfarlandAris Kelsey, 60785 730.28 Infectious Diseases M.D. Office Visit 12/08/2012 1:00p [facility] 09640 424.0 Vimal Avery 424.2 794.31 Office Visit 11/30/2012 3:40p [facility] [place], 08416 424.0 M.DAris 785.2 424.2 Office Visit 11/25/2012 8:30a [facility] [place] Tho, 72360 730.28 Infectious Diseases M.D. 424.0 Office Visit 08/03/2012 8:00a [facility], 40710 719.41 C.M.A. Vimal Office Visit 05/18/2007 11:20a [facility]. 91550 424.0 Vimal Avery 785.2 424.2 272.4 Office Visit 02/16/2007 9:00a [facility] [place], 61893 424.0 M.DAris 785.2 272.4 424.2 Office Visit 11/17/2006 9:00a [facility] [place], 25003 424.0 M.DAris 785.2 272.4 424.2 Office Visit 11/16/2006 1:00p [facility] [place], 31581 424.0 M.DAris 424.2 Office Visit 10/06/2006 2:40p [facility] [place], 07380 424.0 M.DAris 785.2 272.4 Plan of Care 08/10/2017 - Vijaya Ahumada N.P.I34.1 Nonrheumatic mitral (valve) werbolkiB55.0 Nonrheumatic mitral (valve) wvfdlmltyceiyL05.3 Ventricular premature [id number] Tachycardia, unspecifiedFollow up:OV Kathleen 01-17Recommendations:Continue Toprol 25mg daily
--- NOTE | 2017-08-31 16:09 | RAD ---
Indication: Right arm numbness. CT of the brain was performed without IV contrast. Ventricular structures are midline. No midline shift is noted. The extraction spaces are unremarkable. There is no evidence of intracranial mass or hemorrhage. No other high or low density lesions are identified. Mastoid air cells are otherwise unremarkable. Fluid is noted in the anterior and mid ethmoid air cells. IMPRESSION: No intracranial mass or hemorrhage is noted.
[2017-08-31 16:21] LABS: ABS Basophils 0 10^3/ul (0-0.2); ABS Eosinophils 0.3 10^3/ul (0-0.6); ABS Lymphocytes 1.9 10^3/ul (1.0-4.8); ABS Monocytes 0.4 10^3/ul (0-0.8); ABS Neutrophils 2.5 10^3/ul (1.5-7.7); ABS Nucleated RBC 0 10^3/ul; Eosinophil % 6.5 % (0-6); Hematocrit 41 % (42-52); Hemoglobin 14.1 g/dl (14.0-18.0); Lymphocyte % 37.4 % (25-47); Mean Corpuscular HGB Conc 35 g/dl (31-36); Mean Corpuscular Hemoglobin 29 pg (27-31); Mean Corpuscular Volume 83 fL (80-94); Mean Platelet Volume 8.2 um3 (7.4-10.4); Nucleated Red Blood Cells % 0; Platelet Count 188 10^3/ul (150-450); Red Blood Count 4.91 10^6/ul (4.00-5.40); Red Cell Distribution Width 14 % (10.5-15); White Blood Count 5.2 10^3/ul (3.5-10.8)
[2017-08-31 16:23] LABS: INR 1.02 (0.77-1.02)
[2017-08-31 16:32] LABS: EGFR Non-African American 65.6 (>60)
--- NOTE | 2017-08-31 18:12 | ED ---
Neurological HPI - HPI Summary HPI Summary: Patient complains of sudden onset weakness in right arm lasting around 10 minutes at 10:45 AM. Symptoms are resolved and patient is now symptom-free. Patient states he could move his arm but he could not hold it up and he could not control function of his arm. No history of same sx or temporary other neuro deficits. Denies trauma, CLINE, vision change, facial droop, speech change, AMS, any other focal weakness, gait instability, fever, cough, sore throat, CP, SOB, N/V/D, abdominal pain, change in urinary BM. Denies any new medications. Nonsmoker. Denies EtOH, recreational drug use. Medical history as well as mitral valve repair, HTN. No anti-coag. Takes ASA 81 mg daily. - History of Current Complaint Chief Complaint: EDNeurologicalDeficit Stated Complaint: RT ARM NUMBNESS Time Seen by Provider: 08/31/17 16:54 Hx Obtained From: Patient Onset/Duration: Sudden Onset Neurological Deficit Location: RUE Pain Intensity: 0 Character: Motor Weakness - Allergy/Home Medications Allergies/Adverse Reactions: Allergies Allergy/AdvReac Type Severity Reaction Status Date / Time No Known Allergies Allergy Verified 12/21/16 16:21 Home Medications: Home Medications Aspirin EC TAB* [Ecotrin EC Low Dose 81 MG*] 81 mg PO DAILY 08/31/17 [History Confirmed 08/31/17] Metoprolol Succinate XL TAB* [Toprol XL TAB*] 25 mg PO DAILY 08/31/17 [History Confirmed 08/31/17] PARoxetine HCL TAB* [Paxil TAB*] 20 mg PO DAILY 08/31/17 [History Confirmed ] PMH/Surg Hx/FS Hx/Imm Hx Previously Healthy: Yes Endocrine/Hematology History: Denies: Hx Anticoagulant Therapy Cardiovascular History: Denies: Hx Cardiac Arrest Respiratory History: Denies: Hx Lung Cancer History: Denies: Hx Dialysis Musculoskeletal History: Denies: Hx Scoliosis EENT History: Denies: Hx Deafness Neurological History: Denies: Hx CVA, Hx Headaches, Other Neuro Impairments/Disorders Psychiatric History: Denies: Hx Eating Disorder, Hx of Violent Episodes Against Others - Surgical History Surgery Procedure, Year, and Place: HERNIA REPAIR, SPERMATOCELECTOMY, JAW OPERATION FOR OSTEOMYELITIS Infectious Disease History: No Infectious Disease History: Denies: Traveled Outside the [place] in Last 30 Days - Family History Known Family History: Negative: Renal Disease - Social History Alcohol Use: None Substance Use Type: Reports: None Smoking Status (MU): Never Smoked Tobacco Review of Systems Constitutional: Negative Eyes: Negative ENT: Negative Cardiovascular: Negative Respiratory: Negative Gastrointestinal: Negative Genitourinary: Negative Musculoskeletal: Other Positive: Other Skin: Negative Neurological: Negative Psychological: Normal All Other Systems Reviewed And Are Negative: Yes Physical Exam - Summary Physical Exam Summary: Neuro exam normal. Stroke Screen unremarkable. Negative visual field loss. Patient has normal baseline strength in function in right arm. No other focal deficits noted. Triage Information Reviewed: Yes Vital Signs On Initial Exam: Initial Vitals Temp Pulse Resp BP Pulse Ox 98.9 F 76 16 125/86 98 08/31/17 15:07 08/31/17 15:07 08/31/17 15:07 08/31/17 15:07 08/31/17 15:07 Vital Signs Reviewed: Yes Appearance: Positive: Well-Appearing Skin: Positive: Warm Head/Face: Positive: Normal Head/Face Inspection Eyes: Positive: Normal Neck: Positive: Supple Respiratory/Lung Sounds: Positive: Clear to Auscultation Cardiovascular: Positive: Normal Abdomen Description: Positive: Nontender Musculoskeletal: Positive: Normal Neurological: Positive: Normal Psychiatric: Positive: Normal AVPU Assessment: Alert - [place] Coma Scale Best Eye Response: 4 - Spontaneous Best Motor Response: 6 - Obeys Commands Best Verbal Response: 5 - Oriented Coma Scale Total: 15 Diagnostics - Vital Signs Vital Signs Temp Pulse Resp BP Pulse Ox 08/31/17 15:07 98.9 F 76 16 125/86 98 - Laboratory Lab Results: Lab Results 08/31/17 08/31/17 08/31/17 Range/Units 16:01 16:01 16:06 WBC 5.2 (3.5-10.8) 10^3/ul RBC 4.91 (4.00-5.40) 10^6/ul Hgb 14.1 (14.0-18.0) g/dl Hct 41 L (42-52) % MCV 83 (80-94) fL MCH 29 (27-31) pg MCHC 35 (31-36) g/dl RDW 14 (10.5-15) % Plt Count 188 (150-450) 10^3/ul MPV 8.2 (7.4-10.4) um3 Neut % (Auto) 47.5 (38-83) % Lymph % (Auto) 37.4 (25-47) % [place] % (Auto) 7.7 H (0-7) % Eos % (Auto) 6.5 H (0-6) % Baso % (Auto) 0.9 (0-2) % Absolute Neuts (auto) 2.5 (1.5-7.7) 10^3/ul Absolute Lymphs (auto) 1.9 (1.0-4.8) 10^3/ul Absolute Monos (auto) 0.4 (0-0.8) 10^3/ul Absolute Eos (auto) 0.3 (0-0.6) 10^3/ul Absolute Basos (auto) 0 (0-0.2) 10^3/ul Absolute Nucleated RBC 0 10^3/ul Nucleated RBC % 0 INR (Anticoag Therapy) 1.02 (0.77-1.02) Sodium 140 (135-145) mmol/L Potassium 4.2 (3.5-5.0) mmol/L Chloride 105 (101-111) mmol/L Carbon Dioxide 30 (22-32) mmol/L Anion Gap 5 (2-11) mmol/L BUN 19 (6-24) mg/dL Creatinine 1.12 (0.67-1.17) mg/dL Est GFR ( Amer) 79.4 (>60) Est GFR (Non-Af Amer) 65.6 (>60) BUN/Creatinine Ratio 17.0 (8-20) Glucose 93 (70-100) mg/dL Calcium 9.8 (8.6-10.3) mg/dL Total Bilirubin 0.60 (0.2-1.0) mg/dL AST 27 (13-39) U/L ALT 23 (7-52) U/L Alkaline Phosphatase 40 (34-104) U/L Total Protein 7.4 (6.4-8.9) g/dL Albumin 4.5 (3.2-5.2) g/dL Globulin 2.9 (2-4) g/dL Albumin/Globulin Ratio 1.6 (1-3) Result Diagrams: 08/31/17 16:06 08/31/17 16:01 Lab Statement: Any lab studies that have been ordered have been reviewed, and results considered in the medical decision making process. - CT brain w/o CT Interpretation: No Acute Changes CT Interpretation Completed By: Radiologist - EKG 1 Cardiac Rate: NL EKG Rhythm: Sinus Rhythm ST Segment: Non-Specific Ectopy: None EKG Interpretation: prolonged PAUL Re-Evaluation - Re-Evaluation 1 Re-Evaluation Time: 18:13 Comment: Patient remains symptom-free Course/Dx - Course Course Of Treatment: Patient complains of sudden onset weakness in right arm lasting around 10 minutes at 10:45 AM. Symptoms are resolved and patient is now symptom-free. Patient states he could move his arm but he could not hold it up and he could not control function of his arm. No history of same sx or temporary other neuro deficits. Denies trauma, CLINE, vision change, facial droop , speech change, AMS, any other focal weakness, gait instability, fever, cough, sore throat, CP, SOB, N/V/D, abdominal pain, change in urinary BM. Denies any new medications. Nonsmoker. Denies EtOH, recreational drug use. Medical history as well as mitral valve repair, HTN. No anti-coag. Takes ASA 81 mg daily. Neuro exam normal. Stroke Screen unremarkable. Negative visual field loss. Patient has normal baseline strength in function in right arm. No other focal deficits noted. ABCD2 score 4. Vital signs within normal limits. The patient for TIA workup - Diagnoses Provider Diagnoses: TIA (transient ischemic attack) - Physician Notifications Discussed Care Of Patient With: Lester Merritt Instructed by Provider To: Admit As Inpatient Discharge - Sign-Out/Discharge Documenting (check all that apply): Discharge/Admit/Transfer - Discharge Plan Condition: Stable Disposition: ADMITTED TO [facility] Referrals: Federica Velasco MD [Primary Care Provider] - - Billing Disposition and Condition Condition: STABLE Disposition: Admitted to [facility]
[2017-08-31] MEDS ORDERED: Acetaminophen TAB* 325 MG PO PRN (19:22)
[2017-08-31] MEDS ORDERED: Magnesium Hydroxide LIQ* 30 ML UDC PO PRN (19:22)
[2017-08-31] MEDS ORDERED: Ondansetron INJ* 2 MG/ML VIAL IV PRN (19:22)
[2017-08-31] MEDS ORDERED: Albuterol 2.5 MG/3 ML NEB.SOL* (0.083%) INH PRN (19:22)
[2017-08-31] MEDS ORDERED: Al Hydrox/Mg Hydrox/Simet LIQ* 30 ML UDC PO PRN (19:22)
--- NOTE | 2017-09-01 04:53 | HP ---
ADMISSION HISTORY AND PHYSICAL: DATE OF ADMISSION: 08/31/17 PATIENT OF ATTENDING HOSPITALIST: Dr. Lester Merritt * (DICTATED BY RICKI SOTO) PRIMARY CARE PHYSICIAN: Dr. Federica Velasco. PRIMARY MOLD POLISHER: Dr. Avery. CHIEF COMPLAINT: Right-sided weakness. HISTORY OF PRESENT ILLNESS: Mr. Meadows is a pleasant 67-year-old gentleman, who has past medical history significant for mitral valve insufficiency for which he had mitral valve repair last January in [facility] as well as history of hyperlipidemia and heart murmur, who presented to the emergency room earlier today with complaints of few minutes of right-sided weakness that eventually resolved. The patient reports that his symptoms started roughly later this morning and went for about 15 to 20 minutes, he noticed some weakness to his right arm being unable to move it and denies any slurred speech, right lower extremity weakness, numbness, or any other associated symptoms. He denied any chest pain, shortness of breath, or any similar complaints in the past. He carries no history of CVA or stroke. He had a cardiac catheterization done last December by Dr. Avery. I have no official report available; however, the patient notes that he had "no coronary blockage;" however, noticed some deterioration in his mitral valve insufficiency after which he was sent to [facility] for mitral valve repair a month later. He was seen by Dr. Wang at last spring and had an echocardiogram that per patient appears to be normal. He reports being in his normal state of health; however, had this right-sided weakness complaints for which he came to the emergency room for further evaluation. He had laboratory workup that revealed normal blood count as well as normal chemistry. A CT of the brain was essentially negative. Given his age and his examination that revealed no evidence of neurological deficit; however, his ABCD2 score was 4 making him a high risk for a possible recurrent TIA or stroke for the next 48 hours for which we were asked to see the patient for further evaluation and to obtain neurological consultation and possible further workup tomorrow to rule out any risk of further stroke. PAST MEDICAL HISTORY: As mentioned above significant for mitral valve disease for which he had a mitral valve repair last January 2017 at [facility]. He also has a heart murmur. Last echo was done last spring per the patient, it was normal. He also has history of depression and anxiety, hyperlipidemia, osteoarthritis. He denies any history of hypertension, diabetes, previous SC or stroke. PAST SURGICAL HISTORY: Significant for inguinal hernia repair at 3 different occasions, most recently in July 2006. He also had a cyst removal in 1995. CURRENT MEDICATIONS: His current medications include: 1. Aspirin 81 mg p.o. q. daily. 2. Vitamin B12 1000 mcg p.o. q. daily. 3. Metoprolol 25 mg p.o. q. daily. 4. Paxil 20 mg p.o. q. daily. ALLERGIES: He has no known drug allergies. FAMILY HISTORY: He denies any family history of stroke, SC, diabetes, or hypertension. SOCIAL HISTORY: The patient is a nonsmoker, who does not consume alcohol or use any illicit drugs. He lives with a girlfriend, her name is Maryse, along with his sister too. Both of them carry his healthcare proxy. He wishes to be a full code during this admission. REVIEW OF SYSTEMS: See HPI, otherwise 14-point review of systems were negative. PHYSICAL EXAMINATION GENERAL: He is a pleasant, healthy-appearing upper middle aged gentleman in no acute distress or discomfort at the time of admission. VITAL SIGNS: Revealed a temperature of 98.9, pulse of 76, blood pressure 125/86 , respirations of 16, with O2 sat of 98%. HEENT: Head is normocephalic and atraumatic. Sclerae anicteric. PERRLA. EOMs intact. Oropharynx is pink and moist with no exudate. NECK: Supple. Trachea midline and no cervical adenopathy, thyromegaly, or JVD. There were no carotid bruits noted on auscultation. LUNGS: Clear to auscultation bilaterally. HEART: Regular rate and rhythm. Normal S1 and S2 without rubs, murmurs, or gallops. BACK: With normal curvature. No CVA tenderness. ABDOMEN: Soft, nontender, and nondistended. No hernias, masses, or hepatosplenomegaly. EXTREMITIES: Without cyanosis, clubbing, or edema. RECTAL: Deferred at this time. NEUROLOGIC: Handgrip is equal bilaterally. Tongue is midline. Sensation was intact throughout. The patient is alert and oriented x4 and cooperative. LABORATORY WORKUP: CBC with white count of 5000, hemoglobin 14.1, hematocrit of 41, and platelets of 188. Chemistry with sodium of 140, potassium 4.2, chloride 105, CO2 30, BUN 19, and creatinine of 1.1. LFTs and lactic acid were all within normal limits. His urinalysis was essentially negative. He had a CT of the brain that showed no evidence of brain hemorrhage or acute findings. His EKG was no acute changes or ST elevations. ASSESSMENT AND PLAN: A 67-year-old gentleman, who carries past medical history significant for mitral valve insufficiency for which he had a mitral valve repair last January, also has a history of anxiety and depression, who presented to the emergency room with acute onset of right-sided weakness lasting 15 to 20 minutes and eventually resolved and found to have a high risk of recurrent transient ischemic attack or possible stroke for which he will be admitted for. 1. Transient ischemic attack. The patient will be admitted for observation in telemetry unit. We will perform neurologic checks every 4 hours for further assessment. I have discussed the case with Dr. Kruse, neurologist, who recommended obtaining an MRI of the brain as well as MRA of the head both without contrast to be scheduled tomorrow as well as bilateral carotid Dopplers to rule out any possibility of thrombosis or emboli. The patient will continue his 81 mg of aspirin every day. He appears to be stable at that point and we will monitor him in the telemetry unit. 2. Chronic valve disease. We will continue his metoprolol and vitamin B12. 3. Anxiety and depression. We will continue the patient on Paxil. 4. DVT prophylaxis: He is at moderate risk. At this point, we will keep him on SCD prophylaxis. 5. Code status. He is a full code. 6. Disposition. Admission to telemetry for observation and neurological workup tomorrow. Dr. Kruse was consulted and the case was reviewed with my attending, Dr. Merritt who agreed to plan of care. TIME SPENT: Approximately 60 minutes admitting this patient with more than 50% on history taking and physical exam. RICKI SOTO [id number]/[facility] #: [id number] MTDBartolo
[2017-09-01 06:01] LABS: ABS Basophils 0.1 10^3/ul (0-0.2); ABS Eosinophils 0.4 10^3/ul (0-0.6); ABS Lymphocytes 1.9 10^3/ul (1.0-4.8); ABS Monocytes 0.4 10^3/ul (0-0.8); ABS Neutrophils 1.9 10^3/ul (1.5-7.7); ABS Nucleated RBC 0 10^3/ul; Eosinophil % 7.7 % (0-6); Hematocrit 42 % (42-52); Hemoglobin 14.1 g/dl (14.0-18.0); Mean Corpuscular HGB Conc 34 g/dl (31-36); Mean Corpuscular Hemoglobin 28 pg (27-31); Mean Corpuscular Volume 83 fL (80-94); Nucleated Red Blood Cells % 0.2; Platelet Count 193 10^3/ul (150-450); Red Cell Distribution Width 14 % (10.5-15); White Blood Count 4.6 10^3/ul (3.5-10.8)
[2017-09-01 06:22] LABS: EGFR Non-African American 66.3 (>60)
[2017-09-01] MEDS: Metoprolol Succinate XL TAB* 25 MG PO SCH (08:50)
[2017-09-01] MEDS: PARoxetine HCL TAB* 20 MG PO SCH (08:50)
[2017-09-01] MEDS: Cyanocobalamin TAB* 500 MCG PO SCH (08:50)
[2017-09-01] MEDS ORDERED: Aspirin EC TAB* 81 MG TAB.EC PO SCH (09:00)
--- NOTE | 2017-09-01 09:20 | RAD ---
CPT II Codes: 3100F INDICATION: Right-sided numbness and weakness COMPARISON: None TECHNIQUE: Multiple brizuela scale, color and doppler tracings of the common, internal and external carotid and vertebral arteries were obtained. Stenosis estimations reflect velocity criteria that have been correlated to angiographic stenosis calculations based on the distal internal carotid diameter. Right carotid: There is mild mostly noncalcified plaque within the right carotid bulb. The peak systolic velocity in the proximal right internal carotid artery is 64 cm/s and the maximum end-diastolic velocity is 25 cm/s. The peak systolic velocity in the distal common carotid artery is 67 cm/s and the maximum end-diastolic velocity is 20 cm/s. The internal to common carotid ratio is 0.96. This would be consistent with a less than 50% stenosis. Left carotid: There is mild and only slightly calcified. plaque within the left carotid bulb. The peak systolic velocity in the proximal right internal carotid artery is 81 cm/s and the maximum end-diastolic velocity is 34 cm/s. The peak systolic velocity in the distal common carotid artery is 75 cm/s and the maximum end-diastolic velocity is 27 cm/s. The internal to common carotid ratio is 1.08. This would be consistent with a less than 50% stenosis. Vertebrals: There is antegrade flow in both vertebral arteries. IMPRESSION: There is no sonographic evidence of hemodynamically significant stenosis in the bilateral carotid arteries.
--- NOTE | 2017-09-01 13:27 | RAD ---
Indication: Right arm weakness. MRA of the head was performed less than 3-D [id number] technique. Multiple maximum intensity projection images were obtained. The intracranial carotid arteries are unremarkable with no evidence of stenosis. Normal bifurcation is noted. No aneurysmal dilatation or branch occlusion is identified. The vertebral arteries, basilar artery and posterior cerebral arteries are unremarkable. No aneurysmal dilatation or branch occlusion is noted. IMPRESSION: NO BRANCH OCCLUSION OR ANEURYSMAL DILATATION IS NOTED.
--- NOTE | 2017-09-01 13:33 | RAD ---
Indication: Right arm weakness. Image Sequences: Sagittal and axial T1, axial T2, FLAIR, diffusion and susceptibility weighted images of the brain were obtained. Ventricular structures are midline. No midline shift is noted. The extra-axial spaces are unremarkable. There is no evidence of intracranial mass or hemorrhage. No other high or low signal lesions are identified. No restriction of diffusion is noted. Susceptibility weighted images demonstrate a punctate area of susceptibility artifact in the left periventricular white matter in the left frontal lobe as well as in the right cerebellar hemisphere and left and right occipital lobes. These may represent sequela from tiny microhemorrhage. IMPRESSION: No restriction of diffusion is noted. Susceptibility weighted images demonstrate punctate areas of susceptibility artifact in the right cerebellum, left frontal lobe, and left and right occipital lobes likely due to sequela from prior microhemorrhage.
--- NOTE | 2017-09-01 16:55 | ECHO ---
Patient: GISELLE BASS [facility] Rec#: [id number] : 1950 Date: 09/01/2017 Age: 67y Height: 180.34 cm / 71.0 in Weight: 77.11 kg / 170.0 lbs Sex: M BSA: 1.97 Room#: 4 Admit Date#: 08/31/2017 Type: Inpatient Referring: Staci Kruse Reading: Chelsea Wang MD Facing End Trimmer: Josette Pina RDCS,RDMS CC: Federica Velasco MD Transthoracic Echocardiogram Indication: TIA BP: 102/55 HR: 76 Rhythm: NSR Findings History: MV repair, MV prolapse, MV insufficiency Technical Comments: The study quality is good. Left Ventricle: The left ventricular chamber size is normal. There is no left ventricular hypertrophy. Global left ventricular wall motion and contractility are within normal limits. The estimated ejection fraction is 55-60%. There is an E to A reversal in the mitral valve flow pattern suggestive of diastolic dysfunction.s/p MV repair, diastolic evaluation not accurate with ring. Left Atrium: The left atrium is mild to moderately dilated. Right Ventricle: The right ventricular cavity size is normal. The right ventricular global systolic function is low normal. Right Atrium: The right atrium is mild to moderately dilated. The bubble study is negative. A patent foramen ovale is not demonstrated with color Doppler and agitated contrast. Aortic Valve: The aortic valve is trileaflet. Systolic excursion of the aortic valve is normal. There is a trace of aortic regurgitation. There is no evidence of aortic stenosis. Mitral Valve: There is a trace of mitral regurgitation. The mean gradient across the mitral valve is 2.1 mmHg. The mitral valve area, by pressure half time, is calculated at 3 cm2. Mitral valve repair functioning normally. Tricuspid Valve: The tricuspid valve leaflets are normal. There is trace tricuspid regurgitation. No pulmonary hypertension is noted. Pulmonic Valve: The pulmonic valve appears normal. There is trace to mild pulmonic regurgitation.2 jets, one adjacent to AV. Pericardium: There is no significant pericardial effusion. Aorta: There is no dilatation of the ascending aorta. There is no dilatation of the aortic arch. There is mild dilatation of the aortic root. Pulmonary Artery: The main pulmonary artery is not well visualized. Venous: The inferior vena cava appears normal in size. There is a greater than 50% respiratory change in the inferior vena cava dimension. Contrast: Intravenous agitated saline contrast was used to assess intracardiac shunting. Conclusions The left ventricular chamber size is normal. Global left ventricular wall motion and contractility are within normal limits. The estimated ejection fraction is 55-60%. The right ventricular global systolic function is low normal. The bubble study is negative. There is a trace of aortic regurgitation. Mitral valve repair functioning normally. The mean gradient across the mitral valve is 2.1 mmHg. There is trace tricuspid regurgitation. Compared with JAN (transesophogeal echo) of 12/24/16, pre MV repair, prior EF 60-65%, MR has improved from severe, s/p repair flail leaflet and ruptured cordae, TR has improved from mild/moderate, ND has improved from moderate. PFO seen with color Dopper, left to right shunting on December JAN study. Measurements Name Value Normal Range RVIDd (AP) 2D 3 cm (0.9 - 2.6) RVDdMajor (2D) 3 cm (2.2 - 4.4) RAd ISD 4CH 6 cm (3.4 - 4.9) RA (A4C)W 4.2 cm (2.9 - 4.6) IVSd (2D) 1 cm (0.6 - 1) LVPWd (2D) 1 cm (0.6 - 1) LVIDd (2D) 4.7 cm (3.6 - 5.4) LVIDs (2D) 3.3 cm - LV FS (2D) 30 % (25 - 45) Aortic Annulus 2.5 cm (1.4 - 2.6) Ao root diameter (2D) 3.7 cm (2.1 - 3.5) Ascending Ao 2.6 cm (2.1 - 3.4) Aortic arch 2.7 cm (1.8 - 3.4) LA dimension (AP) 2D 4.3 cm (2.3 - 3.8) LAd ISD 4CH 5.6 cm (2.9 - 5.3) LA ISD 4CH W 4.5 cm (2.5 - 4.5) Name Value Normal Range LA ESV SP 4CH (A/L) 77.95 ml - LA ESV SP 2CH (A/L) 85.73 ml - LA ESV BP (A/L) 81.82 ml - LA ESV BP (A/L) index 42 ml/m2 - LA ESV SP 4CH (MOD) 74.27 ml - LA ESV SP 2CH (MOD) 81.04 ml - Name Value Normal Range MV E-wave Vmax 0.8 m/sec - MV deceleration time 235 msec - MV A-wave Vmax 1.1 m/sec - MV E:A ratio 0.7 ratio - LV septal e' Vmax 0.07 m/sec - LV lateral e' Vmax 0.08 m/sec - LV E:e' septal ratio 11 ratio - LV E:e' lateral ratio 10 ratio - Name Value Normal Range AV Vmax 1.1 m/sec - AV VTI 21.7 cm - AV peak gradient 5 mmHg - AV mean gradient 2.6 mmHg - LVOT diameter 2.4 cm - LVOT Vmax 0.9 m/sec - LVOT VTI 17.8 cm - LVOT peak gradient 3.2 mmHg - LVOT mean gradient 1.5 mmHg - CHAD (continuity Vmax) 3.7 cm2 - CHAD (continuity VTI) 3.8 cm2 - JORDAN Vmax 0.5 m/sec - Name Value Normal Range MV Vmax 1 m/sec - MV VTI 28.2 cm - MV peak gradient 4 mmHg - MV mean gradient 2.1 mmHg - MV PHT 73 msec - MVA (PHT) 3 cm2 - MVA (continuity VTI) 2.9 cm2 - Name Value Normal Range TR Vmax 2.5 m/sec - TR peak gradient 25 mmHg - RAP 3 mmHg - RVSP 28 mmHg - IVC diameter 1.7 cm - Name Value Normal Range PV Vmax 0.6 m/sec - PV peak gradient 1.4 mmHg -
--- NOTE | 2017-09-01 19:30 | CONS ---
NEUROLOGY CONSULTATION REPORT: DATE OF CONSULT: 09/01/17 CONSULTING PHYSICIAN: Dr. Velasco. REASON FOR CONSULT: Neurology was consulted by Dr. Velasco to evaluate the patient for stroke/TIA. The history was obtained by the patient. CHIEF COMPLAINT: Transient episode of right arm weakness. HISTORY OF PRESENT ILLNESS: Mr. Rubén Meadows is a 67-year-old fairly healthy man with history of mitral valve regurgitation status post mitral valve repair in January 2017 at [facility], who presented to [facility] yesterday after an episode of right arm weakness. The patient was cleaning an apartment and was brushing a light fixture. During that time he was also cleaning off an exhaust fan light which he took down from the ceiling. He was not working on any heavy objects. After a few minutes of cleaning the fixture, the patient noticed a sudden onset of heaviness in the right arm. He denied any neck pain. He denied any radiating pain. He also experienced a slight stiffness of the trapezius muscle during that time. This lasted approximately 20 - 30 seconds. He denied any headaches. He denied any slurred speech, left upper or lower extremity symptoms, or right leg weakness. He denied any headaches. He has chronic numbness involving the ring and middle fingers. He denied any new symptoms or paresthesias. The patient has never had any similar symptoms in the past. He was admitted to the hospital for further evaluation and work up for TIA. NIHSS today is 0. PAST MEDICAL HISTORY: Mitral valve insufficiency status post repair in January 2017 at [facility] by Dr. Deleon, osteomyelitis of the jaw, and inguinal hernia repair. MEDICATIONS: 1. Cyanocobalamin 1000 mcg p.o. daily. 2. Aspirin 81 mg p.o. daily. 3. Paroxetine 20 mg p.o. daily. 4. Metoprolol 25 mg p.o. daily. ALLERGIES: No known drug allergies. FAMILY HISTORY: Mother suffered from CHF and rheumatoid arthritis. Father due to a myocardial infarction. SOCIAL HISTORY: The patient is . He lives with his . He is a ortiz. He denied any tobacco use. He is exposed to second hand smoking. He denied any alcohol use. REVIEW OF SYSTEMS: A 14-point review of systems was obtained and is otherwise negative except for what is mentioned in the HPI. PHYSICAL EXAMINATION: Vital Signs: Temperature of 98.4, pulse rate of 75, respiratory rate of 16, oxygen saturation of 96% and blood pressure 102/55. General: A well-nourished, well-developed man in no acute distress. He appears his stated age. Normocephalic and atraumatic without any obvious abnormalities. Conjunctivae/corneas are clear with no scleral icterus. Neck is supple and symmetrical with no carotid bruits. Clear to auscultation bilaterally in the anterior and posterior chest wall with nonlabored breathing. Cardiovascular: Regular rhythm and normal S1, S2. Radial pulses are palpable. Extremities: Normal range of motion with no cyanosis. Skin: No skin lesions or lacerations. Psych: Affect is broad and normal mood. Easy to establish support. Neurological Examination: Mental Status: Awake, alert, and oriented to person, place and time, and general circumstance. Speech and language including expression, naming, repetition, and comprehension were assessed and found to be normal. Cranial Nerves: Normal confrontation bilaterally. Pupils are mid range and reactive to light with normal consensual response. Extraocular muscles are intact. No ptosis. Sensation is intact to light touch on forehead, cheeks, and jaw region bilaterally. No facial droop. He is able to hear throughout the history process. Normal strength against resistance. Tongue is symmetrical and midline with no atrophy or fasciculation. Motor Right/Left: No abnormal movement. No pronator drift. Normal bulk and tone throughout. Neck extension is 5. Shoulder range of motion is full; shoulder abduction is 5/5. Elbow flexion is 5/5, extension 5/ 5. Wrist flexion 5/5, extension 5/5. Finger flexion 5/5, extension 5/5, abduction 5/5. Hip flexion 5/5, abduction 5/5. Knee flexion 5/5, extension 5/ 5. Ankle dorsiflexion 5/5, plantarflexion 5/5. Reflexes Right/Left: Brachioradialis 2/2, biceps 2/2, triceps 2/2, patellar 3/3, ankle 1/1, plantar flexor/flexor. Sensation is intact to light touch throughout the upper and lower extremities. Normal vibration and proprioception at the great toes bilaterally. Coordination: Normal [id number] and rapid alternating movements. Gait and station narrow based, normal stance and gait. No ataxia. LABORATORY, IMAGING, AND OTHER DIAGNOSTIC TESTING: WBC 4.6, platelet count of 193. INR of 1.02. Sodium is 140, potassium 4.3, BUN 19, creatinine 1.11, lactic acid is 0.6. Total cholesterol is 159, LDL cholesterol is 105, HDL cholesterol is 40. MRI of the brain without contrast completed on 09/01/17, showed evidence of a remote left cerebellar infarction. After reviewing the study with the patient, the patient did mention to me that over the last 2 years, he has had episodes of gait imbalance, but no falls. This is intermittent. MRA of the head shows no evidence of large vessel occlusion or cerebral aneurysms. Carotid Doppler study showed no hemodynamically significant stenosis and no carotid arteries. EKG was reviewed and that showed normal sinus rhythm with a rate of 85. There was no atrial arrhythmias. ASSESSMENT: 1. Mr. Rubén Meadows is a pleasant 67-year-old right-handed man with history of mitral valve insufficiency status post repair in January 2017, who presents with a transient episode of right arm weakness. I suspect the patient had a TIA to the left middle cerebral artery affecting the precentral homunculus that is causing pure contralateral motor weakness. His symptoms completely resolved. His ABCD2 score is 3 for: age greater than 60, and 2 points for clinical features of the TIA with unilateral weakness. 2. Remote left cerebellar infarct. 3. Mitral valve insufficiency status post repair. 4. Non-specific punctate microvascular hemorrhage most likely related to trauma or previous history of hypertension. He has no hyperdensity changes on CT of the head. No further work-up is indicated for this finding. RECOMMENDATIONS: The patient does not have any focal neurological deficits on examination today. Therefore, he would not have been a candidate for IV tPA for mechanical thrombectomy. He was admitted to the hospitalist service for TIA work-up. Continue neuro checks every 4 hours. We are pending transthoracic echo to be done today. The patient had an echo done in May 2017. I do not have these results. I do not think the patient needs a JAN, since we do not have any evidence of an acute stroke on imaging, unless the TTE is abnormal. The patient is on Telemetry. LDL level is 101; goal should be less than 100. The patient prefers to modify his diet rather than start statin therapy. We agreed to proceed without any statin therapy for now. Increased aspirin to 162 mg daily. Primary stroke prevention education was completed and I advised the patient to closely monitor his blood pressure. VTE prophylaxis with subcutaneous heparin injection 5000 units t.i.d. The patient is not a candidate for anticoagulation therapy. Depending on the transthoracic echo results, further recommendations will be in place. TIME SPENT: I spent a total of 70 minutes and greater than 50% of that was spent directly reviewing the medical chart, obtaining history, examining the patient, education and counseling, and discussing the treatment plan and prognosis. I also contacted Dr. Velasco and discussed this case with her in detail. [id number]/[facility] #: [id number] JITENDRA
[2017-09-02] MEDS: Cyanocobalamin TAB* 500 MCG PO SCH (08:31)
[2017-09-02] MEDS: Metoprolol Succinate XL TAB* 25 MG PO SCH (08:32)
[2017-09-02] MEDS: PARoxetine HCL TAB* 20 MG PO SCH (08:32)
[2017-09-02] MEDS ORDERED: Aspirin EC TAB* 81 MG TAB.EC PO SCH (09:00)
[2017-09-02 11:14] VITALS: BP 124/80
--- NOTE | 2017-09-02 22:17 | PN ---
NEUROLOGY PROGRESS NOTE: DATE OF VISIT: 09/02/17 PRIMARY CARE PROVIDER: Dr. Velasco. REASON FOR CONSULT: Neurology is following for the evaluation and management of TIA. 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 He is waiting for discharge. He denied any focal weakness or paraesthesias. He denied any new neurological deficits such as visual problem, swallowing dysfunction, impairment in his bowel or bladder functions. He informed me that he experiences painless auras once a month that last for a few minutes to hours. He has a family history of migraine as well as migraine headaches as a child. What seems to trigger the headaches are fluorescent lights. REVIEW OF SYSTEMS: He denied any chest pain, shortness of breath, or palpitations. IMAGING: A transthoracic echo was obtained on 08/31/17. The estimated ejection fraction was 55%-60%. There was no left ventricular hypertrophy. The right and left atrium were mild to moderately dilated. The bubble study is negative. A patent foramen ovale is not demonstrated with color Doppler and agitated contrast. In the conclusion, the facilities director reported that there is a PFO seen with color Doppler, left to right shunting on December JAN study. It is questionable if this was fixed during the procedure last January of 2017. MEDICATIONS: 1. Acetaminophen 650 mg p.o. every 4 hours as needed for fever or pain. 2. Aspirin 162 mg p.o. daily. 3. Vitamin B12 1000 mcg p.o. daily. 4. Metoprolol 25 mg p.o. daily. 5. Paroxetine 20 mg p.o. daily. PHYSICAL EXAMINATION: Vitals: Temperature of 97.9, pulse of 80, respiratory rate of 16, oxygen of 100% on room air, blood pressure of 116/82. General: A well- nourished, well-developed man, in no acute distress. Normocephalic, atraumatic without any obvious abnormalities. Conjunctivae/corneas are clear. Neck is supple and symmetrical with no Spurling sign on either side. Extremities: Normal range of motion with no cyanosis. Skin: No skin lesions or lacerations. Psych: Affect is broad and normal mood. Neurological Examination: Mental Status: Awake, alert, and oriented to person, place and time, and general circumstance. Cranial Nerves: Pupils equally round and reactive to light, extraocular muscles are intact. There is no facial asymmetry. Tongue is symmetrical and midline with no atrophy or fasciculation. Motor strength is normal in all 4 extremities, 5/5. Reflexes 2+ throughout with 1 at the ankles bilaterally. Flexor plantar response bilaterally. Sensation is intact to light touch throughout. Coordination: Normal finger-to - nose bilaterally. Gait and station narrow-based with normal stance and gait. ASSESSMENT: 1. Mr. Rubén Meadows is a 67-year-old man with history of mitral valve insufficiency status post repair in January 2017, who presented with a transient intermittent episode of right arm weakness. I suspect the episode is related to transient ischemic attack involving the cortical distribution of the left MCA vascular territory. The aspirin was increased to 162 mg. He prefer not to be on dual antiplatelet therapy for now. He wants to treat the slightly elevated LDL with lifestyle modification and exercise. 2. History of migraine headaches with painless auras - the patient has 1-2 auras of scintillating scotomas in prism that lasts for a few minutes to an hour. No indication for therapy at this time, but if these episodes increase in frequency to 4-5 per month, I recommend daily magnesium oxide 400 mg supplementation. 3. History of mitral valve insufficiency, status post repair - there is no evidence of a patent foramen ovale on the echo done yesterday, which has changed from previous patent foramen ovale on the last echo done and last JAN done in January of 2017. I discussed this with Dr. Velasco. She will review the records as an outpatient and see if correction of the patent foramen ovale was done during the procedure. In the meantime, there will be no change in medical management at this point. If the patient has recurrent symptoms, I have encouraged him to immediately contact the EMS and come back to the emergency room. Otherwise, if his headaches worsen, he can be further followed up and evaluated at the [facility]. He will contact the office for an appointment. TIME SPENT: I spent a total of 25 minutes and greater than 50% of that was spent directly reviewing the medical chart, examining the patient, education and counseling, and discussing the treatment plan and prognosis. He can resume activities without any restrictions. [id number]/[facility] #: [id number]
== END 2017-09-02 12:01 | disposition home or self-care (01) | DRG 69 ==
LOC: ED 14:47 → MEDTELE 19:22 → OBSVTOIN 09-01 12:00
PROVIDERS: ADMIT Hospitalist; ATTEND Internal Medicine Geriatric Medicine
DX: G45.9 Transient cerebral ischemic attack, unspecified (principal); I47.2 Ventricular tachycardia; I10 Essential (primary) hypertension; R40.2362 Coma scale, best motor response, obeys commands, at arrival to emergency department; R40.2142 Coma scale, eyes open, spontaneous, at arrival to emergency department; R40.2252 Coma scale, best verbal response, oriented, at arrival to emergency department; E78.5 Hyperlipidemia, unspecified; F32.9 Major depressive disorder, single episode, unspecified; F41.9 Anxiety disorder, unspecified; M19.90 Unspecified osteoarthritis, unspecified site; R20.0 Anesthesia of skin; R29.700 NIHSS score 0; Z77.22 Contact with and (suspected) exposure to environmental tobacco smoke (acute) (chronic); G43.109 Migraine with aura, not intractable, without status migrainosus; Z82.49 Family history of ischemic heart disease and other diseases of the circulatory system; Z82.61 Family history of arthritis; Z79.82 Long term (current) use of aspirin; Z86.73 Personal history of transient ischemic attack (TIA), and cerebral infarction without residual deficits
CPT/HCPCS: 36415; 70450; 70544; 70551; 80048; 80053; 80061; 83605; 84484; 85025; 85610; 93005; 93306; 93880; 99284; A9270-GY; G0378